=== PATIENT | female | born 2000 | race Asian ===

== ENCOUNTER 2019-02-21 19:50 | Emergency (ER) | payer OTHER ==
[~2019-02-21] VITALS: Ht 167.6 cm; Wt 65.8 kg
[2019-02-21 20:00] VITALS: BP 139/80
[2019-02-21 23:18] VITALS: BP 139/80
[2019-02-24 06:08] LABS: CHLAMYDIA TRACHOMATIS AMP DNA Negative (Negative)
== END 2019-02-21 23:18 | disposition home or self-care (01) ==
LOC: MED 19:50
DX: N76.0 Acute vaginitis (principal); B96.89 Other specified bacterial agents as the cause of diseases classified elsewhere
CPT/HCPCS: 36415; 87210; 87491; 99283